=== PATIENT | male | born 1940 | race Caucasian/White ===

== ENCOUNTER 2024-06-16 09:56 | Outpatient (CLI) | payer MEDICARE ==
[2024-06-16] MEDS ORDERED: Magnevist 469MG/ML 20 ML VIAL ONE (10:11)
== END 2024-06-16 09:57 | disposition home or self-care (01) ==
LOC: CSHMRI 09:56
PROVIDERS: ATTEND Psychiatry & Neurology Neurology
DX: M48.061 Spinal stenosis, lumbar region without neurogenic claudication (principal); M47.816 Spondylosis without myelopathy or radiculopathy, lumbar region; M41.9 Scoliosis, unspecified; M48.05 Spinal stenosis, thoracolumbar region; M48.07 Spinal stenosis, lumbosacral region
CPT/HCPCS: 72158

== ENCOUNTER 2025-04-06 10:21 | Outpatient (CLI) | payer MEDICARE | END 2025-04-06 10:22 | disposition home or self-care (01) | LOC: CSHULT 10:21 | PROVIDERS: ATTEND Family Medicine | DX: R22.31 Localized swelling, mass and lump, right upper limb (principal) | CPT/HCPCS: 76999 ==